=== PATIENT | male | born 1965 | race Caucasian/White ===

== ENCOUNTER 2020-04-07 20:51 | Emergency (ER) | payer MEDICAID ==
[~2020-04-07] VITALS: Ht 165.1 cm; Wt 81.8 kg
[2020-04-07] MEDS ORDERED: BACITRACIN 0.9 GM PACKET OINTMENT TP ONE (21:30)
[2020-04-07 21:35] VITALS: BP 138/79
== END 2020-04-07 21:37 | disposition home or self-care (01) ==
LOC: EMS 20:59
DX: T20.00XA Burn of unspecified degree of head, face, and neck, unspecified site, initial encounter (principal); X08.8XXA Exposure to other specified smoke, fire and flames, initial encounter; Y93.89 Activity, other specified; Y92.89 Other specified places as the place of occurrence of the external cause; Y99.8 Other external cause status
CPT/HCPCS: 16000